=== PATIENT | male | born 1970 | race Caucasian/White ===

== ENCOUNTER 2020-12-18 15:35 | Emergency (ER) | payer SELFPAY ==
[2020-12-18] MEDS ORDERED: Ampicillin/Sulbactam 3 GM in Sodium Chloride 0.9% 100 ML IVPB SCH (16:30)
[2020-12-18 16:36] LABS: #Basophils 0.1 thou/uL (0.0-0.2); #Eosinphils 0.2 thou/uL (0.0-0.7); #Lymphocytes 1.9 thou/uL (1.20-3.40); #Monocytes 0.5 thou/uL (0.11-0.59); %Basophils 0.9 % (0.0-1.0); %Lymphocytes 24.6 % (21.0-51.0); %Monocytes 6.4 % (0.0-10.0); %Neutrophils 65.1 % (42.0-75.0); Hemoglobin 15.2 g/dL (14.0-18.0); Mean Corpuscular HGB CONC 34.4 g/dL (32.0-36.0); Mean Corpuscular Hemoglobin 31.4 pg (27.0-31.0); Mean Corpuscular Volume 91.4 fL (78.0-98.0); Platelet Count 257 thou/uL (130-400); RBC Distribution Width 12.1 % (11.5-14.5); Red Blood Cell (RBC) Count 4.82 mill/uL (4.70-6.10); White Blood Cell (WBC) Count 7.7 thou/uL (4.8-10.8)
[2020-12-18] MEDS ORDERED: Ketorolac Tromethamine 30 MG/ML VIAL ONE (16:44)
[2020-12-18] MEDS ORDERED: Morphine 4 MG/ML VIAL ONE (16:44)
[2020-12-18 16:54] LABS: Anion Gap 9 mmol/L (10-20); BUN (Urea Nitrogen) 10 mg/dL (8.9-20.6); Calc. Creatinine Clearance 0 mL/min (70-130); Carbon Dioxide 30 mmol/L (22-29); Chloride 104 mmol/L (98-107); Glucose 126 mg/dL (70-105); Sodium 139 mmol/L (136-145)
[2020-12-18] MEDS ORDERED: Lidocaine 1% (PF) 30 ML VIAL ONE (17:25)
== END 2020-12-18 18:18 | disposition home or self-care (01) ==
LOC: ERS 15:35
DX: K04.7 Periapical abscess without sinus (principal); L03.211 Cellulitis of face; I10 Essential (primary) hypertension
CPT/HCPCS: 36415; 41800; 70487; 80048; 83605; 85025; 86140; 87040; 96365; 96375; J0295; J1885; J2001; J2270; J3490

== ENCOUNTER 2021-05-19 18:12 | Emergency (ER) | payer BC ==
[~2021-05-19 18:12] MED LIST: Iopamidol-370 76% 500 ML 1 ML ONE
[2021-05-19 18:59] LABS: #Basophils 0.1 thou/uL (0.0-0.2); #Eosinphils 0.3 thou/uL (0.0-0.7); #Lymphocytes 2.5 thou/uL (1.20-3.40); #Monocytes 0.8 thou/uL (0.11-0.59); #Neutrophils 6.6 thou/uL (1.40-6.50); %Basophils 1.3 % (0.0-1.0); %Eosinophils 3.3 % (0.0-10.0); %Lymphocytes 23.9 % (21.0-51.0); %Neutrophils 63.6 % (42.0-75.0); Hemoglobin 16.3 g/dL (14.0-18.0); Mean Corpuscular HGB CONC 33.4 g/dL (32.0-36.0); Mean Corpuscular Hemoglobin 30.9 pg (27.0-31.0); Mean Corpuscular Volume 92.5 fL (78.0-98.0); Mean Platelet Volume 6.5 fL (7.4-10.4); Platelet Count 255 thou/uL (130-400); RBC Distribution Width 12.5 % (11.5-14.5); Red Blood Cell (RBC) Count 5.29 mill/uL (4.70-6.10); White Blood Cell (WBC) Count 10.3 thou/uL (4.8-10.8)
[2021-05-19 19:22] LABS: ALT (SGPT) 95 U/L (8-55); AST (SGOT) 27 U/L (5-34); Albumin 4.4 g/dL (3.5-5.0); Alkaline Phosphatase 134 U/L (40-110); Anion Gap 17 mmol/L (10-20); BUN (Urea Nitrogen) 12 mg/dL (8.9-20.6); Bilirubin, Total 0.4 mg/dL (0.2-1.2); Calc. Creatinine Clearance 0 mL/min (70-130); Calcium 9.6 mg/dL (7.8-10.44); Carbon Dioxide 22 mmol/L (22-29); Chloride 102 mmol/L (98-107); Globulin 3.4 g/dL (2.4-3.5); Glucose 104 mg/dL (70-105); Potassium 4.1 mmol/L (3.5-5.1); Protein, Total 7.8 g/dL (6.0-8.3); Sodium 137 mmol/L (136-145)
[2021-05-19] MEDS ORDERED: Ondansetron PF 4 MG/2 ML Vial ONE (20:15)
[2021-05-19] MEDS ORDERED: Morphine 4 MG/ML VIAL ONE (20:15)
[2021-05-19 20:38] LABS: Bilirubin Negative (Negative); Blood, Urine Negative (Negative); Clarity Clear (Clear); Glucose, Urine (Dipstick) Normal (Negative); Ketone, Urine Negative (Negative); Leukocyte Negative Leu/uL (Negative); Nitrite Negative (Negative); Protein, Urine (Dipstick) Negative (Neg-Trace); Specific Gravity, Urine 1.019 (1.002-1.036); Urobilinogen Normal mg/dL (Less than 2); pH, Urine 5.5 (5.0-9.0)
[2021-05-19] MEDS ORDERED: Ketorolac Tromethamine 30 MG/ML VIAL ONE (21:26)
== END 2021-05-19 22:15 | disposition home or self-care (01) ==
LOC: ERS 18:12
DX: K40.90 Unilateral inguinal hernia, without obstruction or gangrene, not specified as recurrent (principal); I10 Essential (primary) hypertension; M47.9 Spondylosis, unspecified; F17.210 Nicotine dependence, cigarettes, uncomplicated; Z79.899 Other long term (current) drug therapy
CPT/HCPCS: 36415; 74177; 80053; 81003; 85025; 96374; 96375; J1885; J2270; J2405; Q9967

== ENCOUNTER 2023-01-25 03:53 | Inpatient (IN) | payer BC, OTHER ==
[2023-01-25 06:13] VITALS: BMI 36.5
[2023-01-25] MEDS ORDERED: Ondansetron PF 4 MG/2 ML Vial IVP PRN (06:49)
[2023-01-25] MEDS ORDERED: traMADol HCl 50 MG TAB PO PRN (06:49)
[2023-01-25] MEDS ORDERED: Ondansetron ODT 4 MG TAB PO PRN (06:49)
[2023-01-25] MEDS ORDERED: TETANUS, DIPHTHERIA TOX,ADULT (TDVAX) 0.5 ML VIAL IM ONE (06:49)
[2023-01-25] MEDS ORDERED: Morphine 2 MG/ML VIAL SLOW IVP PRN (06:49)
[2023-01-25] MEDS: Sodium Chloride 0.9% 1,000 ML IV SCH ×2 (07:57→14:48)
[2023-01-25] MEDS: hydrALAZINE 20 MG/ML VIAL SLOW IVP PRN (07:59)
[2023-01-25] MEDS: Acetaminophen 325 MG TAB PO SCH ×2 (07:59→13:16)
[2023-01-25] MEDS ORDERED: FLU VACC QS2023-24(6MOS UP)/PF 60 MCG/0.5 ML SYRINGE IM ONE (09:00)
[2023-01-25 10:05] LABS: #Basophils 0.1 thou/uL (0.0-0.2); #Eosinphils 0.5 thou/uL (0.0-0.7); #Monocytes 0.6 thou/uL (0.11-0.59); %Basophils 1.5 % (0.0-1.0); %Eosinophils 5.6 % (0.0-10.0); %Lymphocytes 36.2 % (21.0-51.0); %Monocytes 7.7 % (0.0-10.0); %Neutrophils 48.6 % (42.0-75.0); Hematocrit 44.9 % (42.0-52.0); Mean Corpuscular HGB CONC 33.4 g/dL (32.0-36.0); Mean Corpuscular Hemoglobin 30.1 pg (27.0-31.0); Mean Platelet Volume 9.2 fL (7.4-10.4); Platelet Count 260 10x3/uL (130-400); RBC Distribution Width 13.4 % (11.5-14.5); Red Blood Cell (RBC) Count 4.99 mill/uL (4.70-6.10); White Blood Cell (WBC) Count 8.2 10x3/uL (4.8-10.8)
[2023-01-25 10:26] LABS: ALT (SGPT) 21 U/L (8-55); AST (SGOT) 20 U/L (5-34); Alkaline Phosphatase 86 U/L (40-110); Anion Gap 12 mmol/L (10-20); BUN (Urea Nitrogen) 13 mg/dL (8.9-20.6); Bilirubin, Total 1.1 mg/dL (0.2-1.2); Calc. Creatinine Clearance 130 mL/min (70-130); Calcium 8.9 mg/dL (7.8-10.44); Carbon Dioxide 21 mmol/L (22-29); Chloride 104 mmol/L (98-107); Estimated GFR 93; Globulin 3.2 g/dL (2.4-3.5); Glucose 95 mg/dL (70-105); Potassium 3.6 mmol/L (3.5-5.1); Protein, Total 7.2 g/dL (6.0-8.3); Sodium 133 mmol/L (136-145)
[2023-01-25 10:31] LABS: Troponin I 0.037 ng/mL (< 0.028)
[2023-01-25] MEDS ORDERED: Regadenoson 0.4 MG/5 ML SYRINGE ONE (11:35)
[2023-01-25] MEDS: Acetaminophen 500 MG TAB PO SCH ×2 (18:17→19:51)
[2023-01-25] MEDS ORDERED: Carvedilol 6.25 MG TAB PO SCH (21:30)
[2023-01-26] MEDS ORDERED: Ibuprofen 200 MG TAB PO PRN (00:52)
[2023-01-26] MEDS: Acetaminophen 500 MG TAB PO PRN ×3 (03:34→21:16)
[2023-01-26] MEDS: hydrALAZINE 20 MG/ML VIAL SLOW IVP PRN ×2 (03:35→21:12)
[2023-01-26] MEDS ORDERED: Lisinopril 20 MG TAB PO SCH (05:30)
[2023-01-26 06:01] LABS: Troponin I 0.052 ng/mL (< 0.028)
[2023-01-26 06:49] LABS: ALT (SGPT) 19 U/L (8-55); AST (SGOT) 17 U/L (5-34); Albumin 3.9 g/dL (3.5-5.0); Alkaline Phosphatase 82 U/L (40-110); Anion Gap 11 mmol/L (10-20); BUN (Urea Nitrogen) 13 mg/dL (8.9-20.6); Bilirubin, Total 0.9 mg/dL (0.2-1.2); Calc. Creatinine Clearance 138 mL/min (70-130); Calcium 8.8 mg/dL (7.8-10.44); Carbon Dioxide 23 mmol/L (22-29); Cardiac Risk 4.1 (Less than 4.5); Chloride 108 mmol/L (98-107); Cholesterol 157 mg/dl (< 200 Desired); Estimated GFR 100; Globulin 3.1 g/dL (2.4-3.5); Glucose 100 mg/dL (70-105); HDL Cholesterol 38 mg/dL (>60 Neg Risk); LDL Cholesterol, Calculated 101 mg/dL; Magnesium 2.1 mg/dL (1.6-2.6); Phosphorus 2.7 mg/dL (2.3-4.7); Potassium 3.6 mmol/L (3.5-5.1); Sodium 138 mmol/L (136-145); Triglycerides 92 mg/dL (Less than 150)
[2023-01-26] MEDS ORDERED: Carvedilol 6.25 MG TAB PO SCH (08:00)
[2023-01-26] MEDS: Lisinopril 20 MG TAB PO SCH (08:40)
[2023-01-26] MEDS: Polyethylene Glycol 3350 17 GM Packet PO SCH (08:44)
[2023-01-26] MEDS: Lorazepam 1 MG TAB PO PRN ×2 (16:09→21:12)
[2023-01-26] MEDS: Carvedilol 6.25 MG TAB PO SCH (16:43)
[2023-01-27] MEDS: hydrALAZINE 20 MG/ML VIAL SLOW IVP PRN (05:20)
[2023-01-27] MEDS ORDERED: Ketorolac Tromethamine 30 MG/ML VIAL IVP SCH (06:00)
[2023-01-27] MEDS ORDERED: Bupivacaine 0.25% HCL 30 ML VIAL ONE (06:41)
[2023-01-27] MEDS ORDERED: EPINEPHrine 1 MG/ML VIAL ONE (06:41)
[2023-01-27] MEDS ORDERED: Midazolam HCl 2 mg/2 ml Vial ONE ×2 (07:10→07:20)
[2023-01-27] MEDS ORDERED: fentaNYL PF 100 MCG/2 ML SYRINGE ONE (07:20)
[2023-01-27] MEDS ORDERED: Lidocaine 1% PF 5 ML VIAL ONE ×2 (07:20→07:36)
[2023-01-27] MEDS ORDERED: Ondansetron PF 4 MG/2 ML Vial ONE ×2 (07:20→07:36)
[2023-01-27] MEDS ORDERED: PROPOFOL 20 ML ONE (07:20)
[2023-01-27] MEDS ORDERED: Rocuronium Bromide 10 MG/ML (10ML VIAL) ONE ×2 (07:20→07:36)
[2023-01-27] MEDS ORDERED: CEFAZOLIN 2 GM VIAL ONE (07:28)
[2023-01-27] MEDS ORDERED: Sodium Chloride 0.9% 100 ML ONE (07:28)
[2023-01-27] MEDS ORDERED: Ketorolac Tromethamine 30 MG/ML VIAL ONE ×2 (07:36→09:28)
[2023-01-27] MEDS ORDERED: PHENYLEPHRINE-NS 100 MCG/ML 10 ML SYRINGE ONE ×2 (07:36→08:32)
[2023-01-27] MEDS ORDERED: PROPOFOL 200 MG/20 ML VIAL ONE (07:36)
[2023-01-27] MEDS ORDERED: Ibuprofen 200 MG TAB PO PRN (08:30)
[2023-01-27] MEDS ORDERED: Acetaminophen 500 MG TAB PO PRN (08:30)
[2023-01-27] MEDS: Carvedilol 6.25 MG TAB PO SCH (09:11)
[2023-01-27] MEDS: Polyethylene Glycol 3350 17 GM Packet PO SCH (09:11)
[2023-01-27] MEDS: Lisinopril 20 MG TAB PO SCH (09:11)
[2023-01-27] MEDS ORDERED: SUGAMMADEX SODIUM 200 MG/2 ML VIAL ONE (09:24)
[2023-01-27] MEDS ORDERED: fentaNYL 50 mcg/mL 1 mL Vial ONE ×3 (09:29→10:33)
[2023-01-27] MEDS ORDERED: Ondansetron HCl/PF 4 MG/2 ML Vial IVP PRN (09:46)
[2023-01-27] MEDS ORDERED: Promethazine HCl 25 MG/ML VIAL IM PRN (09:46)
[2023-01-27 11:58] VITALS: BP 144/73; TEMP 98.2
[2023-01-27] MEDS: Lorazepam 1 MG TAB PO PRN (15:11)
== END 2023-01-27 16:30 | disposition home or self-care (01) | DRG 352 ==
LOC: T4-B 05:54 → OBSVTOIN 06:49
PROVIDERS: ADMIT Specialist; ATTEND Specialist
PROC: 0YUA4JZ Supplement Bilateral Inguinal Region with Synthetic Substitute, Percutaneous Endoscopic Approach (ICD-10-PCS; principal; 2023-01-27)
PROC: 8E0W4CZ Robotic Assisted Procedure of Trunk Region, Percutaneous Endoscopic Approach (ICD-10-PCS; 2023-01-27)
PROC: 3E033XZ Introduction of Vasopressor into Peripheral Vein, Percutaneous Approach (ICD-10-PCS; 2023-01-27)
DX: K40.00 Bilateral inguinal hernia, with obstruction, without gangrene, not specified as recurrent (principal); F17.210 Nicotine dependence, cigarettes, uncomplicated; I10 Essential (primary) hypertension; F19.10 Other psychoactive substance abuse, uncomplicated; Z88.2 Allergy status to sulfonamides; Z90.49 Acquired absence of other specified parts of digestive tract; Z82.49 Family history of ischemic heart disease and other diseases of the circulatory system
CPT/HCPCS: 36415; 71045; 71046; 78452; 80053; 80061; 83735; 84100; 84484; 85025; 93005; 93010; 93017; 93306; 94799; A4314; A9502; C1781; J0171; J0360; J1650; J1885; J2250; J2272; J2405; J2704; J2785; J3010; J3490; J7050; S0020

== ENCOUNTER 2023-04-24 14:58 | Emergency (ER) | payer OTHER ==
[2023-04-24] MEDS ORDERED: Morphine 4 MG/ML VIAL ONE (15:48)
[2023-04-24] MEDS ORDERED: Ondansetron PF 4 MG/2 ML Vial ONE (15:48)
[2023-04-24 15:56] LABS: #Basophils 0.1 thou/uL (0.0-0.2); #Eosinphils 0.5 thou/uL (0.0-0.7); #Monocytes 0.6 thou/uL (0.11-0.59); #Neutrophils 5.5 thou/uL (1.40-6.50); %Basophils 1.3 % (0.0-1.0); %Eosinophils 5.2 % (0.0-10.0); %Lymphocytes 25.6 % (21.0-51.0); %Monocytes 6.7 % (0.0-10.0); %Neutrophils 60.6 % (42.0-75.0); Hematocrit 43.1 % (42.0-52.0); Hemoglobin 14.9 g/dL (14.0-18.0); Mean Corpuscular HGB CONC 34.6 g/dL (32.0-36.0); Mean Corpuscular Volume 86.7 fl (78.0-98.0); Mean Platelet Volume 9.1 fL (7.4-10.4); Platelet Count 294 10x3/uL (130-400); RBC Distribution Width 13.2 % (11.5-14.5); Red Blood Cell (RBC) Count 4.97 mill/uL (4.70-6.10); White Blood Cell (WBC) Count 9.1 10x3/uL (4.8-10.8)
[2023-04-24 16:27] LABS: ALT (SGPT) 22 U/L (8-55); AST (SGOT) 21 U/L (5-34); Albumin 4.1 g/dL (3.5-5.0); Alkaline Phosphatase 92 U/L (40-110); Anion Gap 10 mmol/L (10-20); BUN (Urea Nitrogen) 16 mg/dL (8.9-20.6); Bilirubin, Total 0.5 mg/dL (0.2-1.2); Calc. Creatinine Clearance 0 mL/min (70-130); Calcium 9.6 mg/dL (7.8-10.44); Carbon Dioxide 30 mmol/L (22-29); Chloride 102 mmol/L (98-107); Estimated GFR 69; Globulin 3.6 g/dL (2.4-3.5); Glucose 100 mg/dL (70-105); Lipase 13 U/L (8-78); Potassium 4.3 mmol/L (3.5-5.1); Protein, Total 7.7 g/dL (6.0-8.3); Sodium 138 mmol/L (136-145)
[2023-04-24] MEDS ORDERED: Ketorolac Tromethamine 30 MG (1 mL) VIAL ONE (17:17)
== END 2023-04-24 17:23 | disposition home or self-care (01) ==
LOC: ERS 14:58
DX: R10.32 Left lower quadrant pain (principal); I10 Essential (primary) hypertension; F17.210 Nicotine dependence, cigarettes, uncomplicated; Z79.899 Other long term (current) drug therapy
CPT/HCPCS: 74177; 80053; 83605; 83690; 85025; 96374; 96375; J1885; J2270; J2405

== ENCOUNTER 2024-11-16 10:10 | Emergency (ER) | payer OTHER ==
[2024-11-16] MEDS ORDERED: Iopamidol 370 76% 100 ML VIAL ONE (10:20)
[2024-11-16] MEDS ORDERED: HYDROmorphone 0.5 MG/0.5 ML SYRINGE ONE (10:47)
[2024-11-16 10:48] LABS: #Basophils 0.10 10x3/uL (0.0-0.2); #Eosinophils 0.68 10x3/uL (0.0-0.7); #Monocytes 0.69 10x3/uL (0.11-0.59); #Neutrophils 6.13 10x3/uL (1.40-6.50); %Basophils 1.0 % (0.0-1.0); %Eosinophils 7.0 % (0.0-10.0); %Lymphocytes 21.2 % (21.0-51.0); %Monocytes 7.1 % (0.0-10.0); %Neutrophils 63.3 % (42.0-75.0); Hematocrit 43.3 % (42.0-52.0); Hemoglobin 14.4 g/dL (14.0-18.0); Mean Corpuscular Hemoglobin 28.9 pg (27.0-31.0); Mean Corpuscular Volume 86.9 fL (78.0-98.0); Platelet Count 232 10x3/uL (130-400); Red Blood Cell (RBC) Count 4.98 mill/uL (4.70-6.10); White Blood Cell (WBC) Count 9.70 10x3/uL (4.8-10.8)
[2024-11-16 11:07] LABS: ALT (SGPT) 11 U/L (Less than 45); AST (SGOT) 21 U/L (11-34); Albumin 3.9 g/dL (3.1-4.5); Alkaline Phosphatase 103 U/L (40-110); Anion Gap 17 mmol/L (10-20); BUN (Urea Nitrogen) 13 mg/dL (8.4-25.7); Bilirubin, Total 0.4 mg/dL (0.3-1.2); Calc. Creatinine Clearance 0 mL/min (70-130); Calcium 8.7 mg/dL (7.8-10.44); Carbon Dioxide 25 mmol/L (22-29); Chloride 103 mmol/L (98-107); Globulin 3.4 g/dL (2.4-3.5); Glucose 107 mg/dL (70-105); Lipase 16 U/L (8-78); Potassium 3.9 mmol/L (3.5-5.1); Sodium 141 mmol/L (136-145)
[2024-11-16 13:17] LABS: Bacteria/HPF None Seen HPF (None Seen); CAUTI Indications for Culture Pelvic or flank pain; Glucose, Urine (Dipstick) 50 mg/dL (Negative); Leukocyte Negative Leu/uL (Negative); Protein, Urine (Dipstick) 50 mg/dL (Neg-Trace); RBC/HPF 0-3 HPF (0-3); Specific Gravity, Urine 1.021 (1.002-1.036); WBC/HPF 0-3 HPF (0-3)
[2024-11-16 13:21] LABS: Urine Culture Reflex No No
[2024-11-16] MEDS ORDERED: Ketorolac Tromethamine 30 MG (1 mL) VIAL ONE (13:49)
[2024-11-16] MEDS ORDERED: cloNIDine 0.1 MG TAB ONE (14:48)
== END 2024-11-16 16:03 | disposition home or self-care (01) ==
LOC: ERS 10:10
DX: N45.3 Epididymo-orchitis (principal); N43.3 Hydrocele, unspecified; I10 Essential (primary) hypertension; F17.210 Nicotine dependence, cigarettes, uncomplicated; Z79.899 Other long term (current) drug therapy
CPT/HCPCS: 74177; 76870; 80053; 81001; 83605; 83690; 85025; 93005; 93976; 96374; 96375; J1171; J1885; Q9967